=== PATIENT | female | born 1985 | race Caucasian/White ===

== ENCOUNTER 2016-11-14 12:07 | Emergency (ER) | payer MEDICAID ==
[~2016-11-14] VITALS: Ht 162.6 cm; Wt 54.4 kg
--- NOTE | 2016-11-14 12:18 | NUR ---
PT AMBULATORY TO ER BED 09. C/O PRESSURE LIKE MIDSTERNAL CHEST PAIN R/T BACK X 5 DAYS AFTER FLYING BACK FROM [facility]. ALSO C/O SOB. PT IS AAO, PLACED ON MONITOR. NAD NOTED AWAITING MD MCGUIRE.
--- NOTE | 2016-11-14 12:19 | NUR ---
DR TOMLIN AT BEDSIDE FOR EVAL.
[2016-11-14 12:31] LABS: BASOPHILS % (AUTO) 0.9 % (0.0-2.0); EOSINOPHILS # (AUTO) 0.1 /CMM (0.0-0.7); EOSINOPHILS % (AUTO) 2.4 % (0.0-6.0); HEMATOCRIT 42 % (33-45); HEMOGLOBIN 13.5 g/dL (11.5-14.8); LYMPHOCYTES # (AUTO) 1.6 /CMM (0.8-4.8); LYMPHOCYTES % (AUTO) 29.8 % (20.0-44.0); MEAN CORPUSCULAR HEMOGLOBIN 27 PG (26.0-33.0); MEAN CORPUSCULAR HGB CONC 33 g/dl (31.0-36.0); MEAN CORPUSCULAR VOLUME 81 fL (82-100); MONOCYTES # (AUTO) 0.3 /CMM (0.1-1.30); MONOCYTES % (AUTO) 6.2 % (2.0-12.0); NEUTROPHILS # (AUTO) 3.3 /CMM (1.8-8.9); NEUTROPHILS % (AUTO) 60.7 % (43.0-81.0); PLATELET COUNT (AUTO) 310 /CMM (150-450); RDW COEFFICIENT OF VARIATION 12.4 (11.5-15.0); RED BLOOD CELL COUNT(AUTO) 5.11 MIL/uL (4.0-5.2); WHITE BLOOD COUNT (AUTO) 5.3 K/uL (4.3-11.0)
--- NOTE | 2016-11-14 12:35 | NUR ---
PT TO RADIOOGY FOR CHEST XRAY.
[2016-11-14 12:39] LABS: CALCIUM, SERUM 8.9 mg/dL (8.5-10.1); CARBON DIOXIDE 30 mmol/L (21-32); CHLORIDE 107 mmol/L (98-107); CREATININE 0.8 mg/dL (0.6-1.3); GLUCOSE 89 mg/dL (74-106); POTASSIUM 3.9 mmol/L (3.5-5.1); SODIUM SERUM 144 mmol/L (136-145); UREA NITROGEN, BLOOD 10 mg/dL (7-18)
[2016-11-14 12:47] LABS: TROPONIN I < 0.017 ng/mL (0.00-0.056)
[2016-11-14 13:10] LABS: D-DIMER 0.32 mg/L(FEU (0.17-0.50); PROTHROMBIN TIME 10.7 SECS (9.5-12.7)
--- NOTE | 2016-11-14 13:21 | NUR ---
Patient discharged to home in stable condition. Written and verbal after care instructions given. Patient verbalizes understanding of instruction.IV removed. Catheter intact and site benign. Pressure and 4x4 applied to site. No bleeding noted.
[2016-11-14 13:22] VITALS: BP 122/74
== END 2016-11-14 13:23 | disposition home or self-care (01) ==
LOC: ER 12:08
DX: S60.212A Contusion of left wrist, initial encounter (principal); R07.89 Other chest pain; W19.XXXA Unspecified fall, initial encounter; Y93.89 Activity, other specified; Y92.89 Other specified places as the place of occurrence of the external cause; Y99.8 Other external cause status
CPT/HCPCS: 36415; 71010; 73110; 80048; 84484; 85025; 85378; 85730; 93005; 99285; A4606

== ENCOUNTER 2017-06-13 22:07 | Emergency (ER) | payer MEDICAID ==
[~2017-06-13] VITALS: Ht 162.6 cm; Wt 56.7 kg
--- NOTE | 2017-06-13 22:30 | NUR ---
PT CAME FROM HOME WITH C/O YELLOW DISCHARGE OU X 24 HOURS. NO PAIN/TRAUMA, BREATING UNLABORED, NAD NOTED
[2017-06-13] MEDS ORDERED: ERYTHROMYCIN BASE OPHTH 3.5 GM TUBE ONE (23:18)
[2017-06-13] MEDS ORDERED: CEFTRIAXONE 1 G VIAL ONE (23:18)
[2017-06-13] MEDS ORDERED: IBUPROFEN 600 MG TABLET PO ONE ×2 (23:19→23:30)
[2017-06-13] MEDS ORDERED: PSEUDOEPHEDRINE HCL 30 MG TABLET ONE (23:21)
[2017-06-13] MEDS ORDERED: LIDOCAINE HCL/MPF 1% 30 ML VIAL IJ ONE (23:21)
[2017-06-13] MEDS ORDERED: ERYTHROMYCIN BASE OPHTH 3.5 GM TUBE OP ONE (23:30)
[2017-06-13] MEDS ORDERED: CEFTRIAXONE 1 G VIAL IM ONE (23:30)
[2017-06-13] MEDS ORDERED: PSEUDOEPHEDRINE HCL 30 MG TABLET PO ONE (23:30)
[2017-06-14 00:32] VITALS: BP 119/68
== END 2017-06-14 00:32 | disposition home or self-care (01) ==
LOC: ER 22:13
DX: H10.33 Unspecified acute conjunctivitis, bilateral (principal)
CPT/HCPCS: A4606; A6253; J0696; J3490; Z7610

== ENCOUNTER → 2021-12-18 | Emergency (ER) | payer MEDICAID ==
[~2021-12-18] VITALS: Ht 162.6 cm; Wt 54.4 kg
--- NOTE | 2021-12-18 03:00 | NUR ---
BIBS C/O CP X1 WEEK ON AND OFF RADIATING TO BACK EARLIER TODAY DENIES ANY PAIN AT THIS TIME. ASPIRIN EARLY INTERVENTIONIST.
--- NOTE | 2021-12-18 03:06 | NUR ---
URINE COLLECTED AND SENT TO LAB
--- NOTE | 2021-12-18 03:15 | NUR ---
LABS COLLECTED AND SENT
[2021-12-18 03:31] LABS: BASOPHILS # (AUTO) 0.1 K/uL (0.0-0.2); BASOPHILS % (AUTO) 1.2 % (0.0-2.0); EOSINOPHILS % (AUTO) 3.9 % (0.0-6.0); HEMATOCRIT 38 % (33-45); HEMOGLOBIN 12.3 g/dL (11.5-14.8); LYMPHOCYTES # (AUTO) 2.6 K/uL (0.8-4.8); LYMPHOCYTES % (AUTO) 42.1 % (20.0-44.0); MEAN CORPUSCULAR HGB CONC 32 g/dl (31.0-36.0); MEAN CORPUSCULAR VOLUME 80 fL (82-100); MONOCYTES # (AUTO) 0.4 K/uL (0.1-1.30); MONOCYTES % (AUTO) 7.1 % (2.0-12.0); NEUTROPHILS # (AUTO) 2.8 K/uL (1.8-8.9); NEUTROPHILS % (AUTO) 45.7 % (43.0-81.0); PLATELET COUNT (AUTO) 288 K/uL (150-450); RED BLOOD CELL COUNT(AUTO) 4.77 MIL/uL (4.0-5.2); WHITE BLOOD COUNT (AUTO) 6.1 K/uL (4.3-11.0)
--- NOTE | 2021-12-18 03:55 | NUR ---
[employer]OCIATE AT BEDSIDE
[2021-12-18 03:56] LABS: CALCIUM, SERUM 8.5 mg/dL (8.5-10.1); CARBON DIOXIDE 32 mmol/L (21-32); CHLORIDE 103 mmol/L (98-107); CREATININE 0.9 mg/dL (0.6-1.3); GLUCOSE 101 mg/dL (74-106); POTASSIUM 3.9 mmol/L (3.5-5.1); SODIUM SERUM 139 mmol/L (136-145); UREA NITROGEN, BLOOD 20 mg/dL (7-18)
[2021-12-18 04:02] LABS: ALANINE AMINOTRANSFERASE 23 U/L (12-78); ALBUMIN 3.6 g/dL (3.4-5.0); ALKALINE PHOSPHATASE 76 U/L (46-116); ASPARTATE AMINOTRANSFERASE 12 U/L (15-37); BILIRUBIN,TOTAL 0.1 mg/dL (0.2-1.0); TOTAL PROTEIN, SERUM 7.4 g/dL (6.4-8.2)
--- NOTE | 2021-12-18 04:58 | NUR ---
PATEINT LEFT IN SATBLE CONDITION
[2021-12-18 04:59] VITALS: BP 96/68
== END | disposition home or self-care (01) ==
LOC: ER 02:41
DX: R07.89 Other chest pain (principal)
CPT/HCPCS: 36415; 71045-TC; 80048-TC; 80076-TC; 84484-TC; 84703-TC; 85025-TC